=== PATIENT | female | born 1945 | race Caucasian/White ===

== ENCOUNTER → 2017-01-08 | Outpatient (CLI) | payer MEDICARE, BC ==
[~2017-01-08] MED LIST: EVISTA 60MG60 MG/TAB PO; LEXAPRO 10MG10 MG PO; MOBIC15 MG PO; PROTONIX 40MG T40 MG PO
== END ==
LOC: MC.RAD 09:59
DX: Z12.31 Encounter for screening mammogram for malignant neoplasm of breast (principal)

== ENCOUNTER → 2018-03-20 | Outpatient (CLI) | payer MEDICARE, BC | LOC: MC.RAD 09:53 | DX: Z12.31 Encounter for screening mammogram for malignant neoplasm of breast (principal); N63.20 Unspecified lump in the left breast, unspecified quadrant; Z90.12 Acquired absence of left breast and nipple ==

== ENCOUNTER → 2018-03-25 | Outpatient (CLI) | payer MEDICARE, BC | LOC: MC.RAD 07:59 | DX: R92.8 Other abnormal and inconclusive findings on diagnostic imaging of breast (principal) ==

== ENCOUNTER 2018-11-19 10:45 | Outpatient (RCR) | payer MEDICARE, BC | END 2019-01-08 | disposition home or self-care (01) | LOC: WSC | DX: M46.1 Sacroiliitis, not elsewhere classified (principal); Z79.82 Long term (current) use of aspirin; Z79.899 Other long term (current) drug therapy | CPT/HCPCS: G8978-GP; G8979-GP ==

== ENCOUNTER → 2020-03-22 | Outpatient (CLI) | payer MEDICARE, BC | LOC: MC.RAD 10:20 | DX: Z12.31 Encounter for screening mammogram for malignant neoplasm of breast (principal) ==

== ENCOUNTER 2021-01-04 13:45 | Outpatient (RCR) | payer MEDICARE, BC | END 2021-01-12 07:02 | disposition home or self-care (01) | LOC: WSPT 13:45 | DX: M40.204 Unspecified kyphosis, thoracic region (principal) ==

== ENCOUNTER → 2021-04-11 | Outpatient (CLI) | payer MEDICARE, BC | LOC: MC.RAD 10:10 | DX: Z12.31 Encounter for screening mammogram for malignant neoplasm of breast (principal); Z98.890 Other specified postprocedural states ==

== ENCOUNTER → 2022-04-23 | Outpatient (CLI) | payer MEDICARE, BC | LOC: MC.RAD 13:08 | DX: Z12.31 Encounter for screening mammogram for malignant neoplasm of breast (principal) ==

== ENCOUNTER 2022-07-04 09:30 | Outpatient (RCR) | payer MEDICARE, BC | END 2022-07-09 | disposition home or self-care (01) | LOC: PT.GENESIS | DX: M25.552 Pain in left hip (principal); M76.892 Other specified enthesopathies of left lower limb, excluding foot ==

== ENCOUNTER 2022-12-05 14:15 | Outpatient (RCR) | payer MEDICARE, BC | END 2022-12-07 | disposition home or self-care (01) | LOC: PT.GENESIS | DX: M76.892 Other specified enthesopathies of left lower limb, excluding foot (principal) ==

== ENCOUNTER 2022-12-20 09:00 | Outpatient (RCR) | payer MEDICARE, BC | END 2023-01-03 09:50 | disposition home or self-care (01) | LOC: PT.GENESIS 09:00 | DX: M76.892 Other specified enthesopathies of left lower limb, excluding foot (principal) ==

== ENCOUNTER → 2023-05-23 | Outpatient (CLI) | payer MEDICARE, BC ==
[~2023-05-23] MED LIST changes: +GLUCOSAMINE & C1 CA2 PO; +LEXAPRO20 MG PO; +MSM500 MG PO; +MULTIVITAMIN FO1 CAP PO; +PRILOSEC 20MG20 MG PO; +PROLIA60 MG/ML SQ; +VITAMIN D250 MCG PO; +VITAMINC250CH PO
== END ==
LOC: MHCPAIN 09:54
DX: M25.552 Pain in left hip (principal)
CPT/HCPCS: G0463

== ENCOUNTER → 2023-06-12 | Outpatient (CLI) | payer MEDICARE, BC | LOC: CANSCHCLI → MC.RAD 13:28 | DX: Z12.31 Encounter for screening mammogram for malignant neoplasm of breast (principal) ==

== ENCOUNTER 2023-07-23 09:30 | Outpatient (RCR) | payer MEDICARE, BC | END 2023-08-08 | disposition home or self-care (01) | LOC: PT.GENESIS | DX: R29.898 Other symptoms and signs involving the musculoskeletal system (principal); M25.552 Pain in left hip ==

== ENCOUNTER 2023-08-06 14:51 | Outpatient (CLI) | payer MEDICARE, BC ==
[~2023-08-06] VITALS: Ht 170.2 cm; Wt 69.8 kg
[2023-08-06 15:21] VITALS: BP 128/51; PULSE 65; TEMP 98.5
== END 2023-08-06 15:26 | disposition home or self-care (01) ==
LOC: EUO 14:51
DX: M81.0 Age-related osteoporosis without current pathological fracture (principal)
CPT/HCPCS: J0897

== ENCOUNTER → 2023-09-19 | Outpatient (CLI) | payer MEDICARE, BC | LOC: MHCPAIN 14:55 | DX: M75.40 Impingement syndrome of unspecified shoulder (principal) | CPT/HCPCS: G0463 ==

== ENCOUNTER 2023-10-02 10:38 | Outpatient (RCR) | payer MEDICARE, BC | END 2023-10-09 | disposition home or self-care (01) | LOC: PT.GENESIS | DX: M75.40 Impingement syndrome of unspecified shoulder (principal) ==

== ENCOUNTER 2023-10-25 09:11 | Outpatient (RCR) | payer MEDICARE, BC | END 2023-11-07 | disposition home or self-care (01) | LOC: PT.GENESIS | DX: M75.41 Impingement syndrome of right shoulder (principal); M75.42 Impingement syndrome of left shoulder ==

== ENCOUNTER → 2023-12-17 | Outpatient (CLI) | payer MEDICARE, BC | LOC: MHCPAIN 14:55 | DX: M25.552 Pain in left hip (principal); M75.40 Impingement syndrome of unspecified shoulder | CPT/HCPCS: G0463 ==

== ENCOUNTER 2024-03-30 15:30 | Outpatient (RCR) | payer MEDICARE, BC | END 2024-04-08 | disposition home or self-care (01) | LOC: PT.GENESIS | DX: M54.16 Radiculopathy, lumbar region (principal) ==

== ENCOUNTER → 2024-04-14 | Outpatient (CLI) | payer MEDICARE, BC | LOC: MHCPAIN 13:48 | DX: M54.16 Radiculopathy, lumbar region (principal); M79.651 Pain in right thigh; M51.36 Other intervertebral disc degeneration, lumbar region | CPT/HCPCS: G0463 ==

== ENCOUNTER → 2024-04-20 | Outpatient (CLI) | payer MEDICARE, BC ==
[~2024-04-20] MED LIST changes: +Iohexol 300 - 10 ML VIAL ONE; +Lidocaine PF 2% (20 MG/ML) 2 ML VIAL ONE
== END ==
LOC: MHCPAIN 13:20
DX: M54.16 Radiculopathy, lumbar region (principal)
CPT/HCPCS: J1100; Q9967

== ENCOUNTER → 2024-06-04 | Outpatient (CLI) | payer MEDICARE, BC ==
[~2024-06-04] MED LIST changes: -Iohexol 300 - 10 ML VIAL ONE; -Lidocaine PF 2% (20 MG/ML) 2 ML VIAL ONE
== END ==
LOC: MHCPAIN 09:53
DX: M51.36 Other intervertebral disc degeneration, lumbar region (principal); M47.816 Spondylosis without myelopathy or radiculopathy, lumbar region; M41.86 Other forms of scoliosis, lumbar region
CPT/HCPCS: G0463

== ENCOUNTER → 2024-06-18 | Outpatient (CLI) | payer MEDICARE, BC | LOC: MC.RAD 09:12 | DX: Z12.31 Encounter for screening mammogram for malignant neoplasm of breast (principal) ==